=== PATIENT | female | born 1965 | race Caucasian/White ===

== ENCOUNTER → 2025-07-22 | Emergency (ER) | payer BC ==
[~2025-07-22] MED LIST: Acetaminophen 325 MG TAB ONE; Metoclopramide HCl 10 MG (2 mL) VIAL ONE; diphenhydrAMINE 50 MG/ML VIAL ONE
== END ==
LOC: NAV ERS 09:26
DX: R51.9 Headache, unspecified (principal); R29.700 NIHSS score 0; I48.91 Unspecified atrial fibrillation; E03.9 Hypothyroidism, unspecified; Z79.890 Hormone replacement therapy; Z79.01 Long term (current) use of anticoagulants
CPT/HCPCS: 96365; 96366; 96375; J1100; J1200; J2765; J7030